=== PATIENT | female | born 1960 | race American Indian/Alaskan Native ===

== ENCOUNTER 2017-04-15 13:54 | Emergency (ER) | payer MEDICARE ==
[2017-04-15] MEDS ORDERED: TYLENOL PO ONE (17:38)
[2017-04-15] MEDS ORDERED: XYLOCAINE 1%/ EPI 1:100,000 INFILTRATI ONE (17:39)
[2017-04-15] MEDS ORDERED: XYLOCAINE 1%/ EPI 1:100,000 INFILTRATI NR (18:00)
[2017-04-15 18:08] VITALS: BP 156/91
== END 2017-04-15 18:52 | disposition home or self-care (01) ==
LOC: ED 13:54
DX: L02.411 Cutaneous abscess of right axilla (principal); Z79.82 Long term (current) use of aspirin; I10 Essential (primary) hypertension; F31.9 Bipolar disorder, unspecified; F41.9 Anxiety disorder, unspecified; F17.200 Nicotine dependence, unspecified, uncomplicated; Z88.8 Allergy status to other drugs, medicaments and biological substances

== ENCOUNTER 2019-01-21 07:05 | Emergency (ER) | payer MEDICARE ==
[2019-01-21 07:14] VITALS: BP 162/94
[2019-01-21] MEDS ORDERED: DECADRON IM ONE (07:52)
--- NOTE | 2019-01-21 07:52 | Emergency Department Report ---
HPI - General Chief Complaint: Fall Time Seen by Provider: 01/21/19 07:43 - HPI HPI: Patient is a 58-year-old female and she comes to the ER today after falling 3 days ago. She states she tripped and fell from standing position and landed on her left side on the floor. She thinks this was due to her vertigo which she takes Antivert for. Patient is complaining of rib pain on the left side. She states the pain gaze been used at home but is not helping. The pain is worse with movement and deep inspiration. She states that it hurts to cough. Vital signs noted -her heart rate being approximately 110 on admission. BP slightly inc. But she states that she is in pain. Her sats are 98% on room air. No fever. Patient reports that she's had recent sinus drainage and sinus headache. Patient denies recent fever or chills. Patient is seen by [facility] and Dr. Donaldson. Past medical history includes hypertension, vertigo, arthritis, bipolar, hypothyroidism. Patient has had previous thyroid surgery and hysterectomy. Home medications are currently Antivert and Vistaril for sleep. Note the patient is allergic to aspirin and NSAIDs. ED Past Medical Hx - Past Medical History Hx Hypertension: Yes Hx Arthritis: Yes Hx Psychiatric Treatment: Yes (bipolar, PTSD, anxiety.) Additional medical history: hypothyroid - Surgical History Past Surgical History?: Yes Additional Surgical History: hysterectomy. right thyroidectomy - Family History Family history: no significant - Social History Smoking Status: Current Every Day Smoker Substance Use Type: None - Medications Home Medications: Home Medications Medication Instructions Recorded Confirmed Last Taken Type Diazepam [Valium] 10 mg PO BID 04/15/17 04/15/17 04/15/17 14:00 History 10mg Levothyroxine [Synthroid] 100 mcg PO DAILY 04/15/17 04/15/17 04/15/17 08:30 History 1 tab Lisinopril [Zestril TAB] 2.5 mg PO QDAY 04/15/17 04/15/17 04/15/17 08:30 History 2.5 mg [place] Carbonate ER [Lithobid ER] 300 mg PO QHS 04/15/17 04/15/17 Unknown History QUEtiapine [SEROquel] 300 mg PO QHS 04/15/17 04/15/17 Unknown History carBAMazepine [TEGretol] 300 mg PO Q12HR 04/15/17 04/15/17 04/15/17 08:30 History 300 mg hydrOXYzine PAMOATE [Vistaril] 50 mg PO QHS 04/15/17 04/15/17 Unknown History Triamcinolone Aceton 0.1% (Nf) 1 applic TP BID #1 tube 12/25/18 Unknown Rx [Kenalog (NF)] Azithromycin [Zithromax Z-DONNA] 250 mg PO DAILY #4 tablet 01/21/19 Unknown Rx Benzonatate [Tessalon Perles] 100 mg PO Q8HR PRN #20 capsule 01/21/19 Unknown Rx predniSONE [Deltasone] 20 mg PO DAILY #5 tablet 01/21/19 Unknown Rx traMADol [Ultram] 50 mg PO Q6HR PRN #10 tablet 01/21/19 Unknown Rx ED Review of Systems ROS: Stated complaint: RT SIDE CHEST PAIN Other details as noted in HPI Comment: All other systems reviewed and negative Physical Exam - Physical Exam Vital Signs: Vital Signs 01/21/19 07:12 Temperature 97.8 F Pulse Rate 110 H Respiratory 17 Rate Blood Pressure 162/94 O2 Sat by Pulse 98 Oximetry Physical Exam: WDWN patient in NAD VS per RN flow sheet Alert and oriented to person, place and time. S1-S2. No S3 or S4. No systolic or diastolic murmur. No JVD. No pitting edema. Lungs clear to auscultation bilaterally anteriorly and posteriorly. Abdomen soft nontender bowel soundsx4 Moves all extremities well. Mood and affect appropriate. ED Course Vital Signs 01/21/19 07:12 Temperature 97.8 F Pulse Rate 110 H Respiratory 17 Rate Blood Pressure 162/94 O2 Sat by Pulse 98 Oximetry ED Medical Decision Making - Radiology Data Radiology results: report reviewed, image reviewed - Medical Decision Making XRAY NOTED PT HAS BEEN INFORMED OF FINDINGS SHE IS REQUESTING PAIN MEDICATION SEE ALLERGIES THE DECADRON AND MOTRIN DID NOT HELP SHE IS REFUSING OTHER MEDICATIONS. DC HOME WITH RX AND DC PLAN OF CARE. AMBULATORY, TAKING PO, NONTOXIC AND AFEBRILE Vital Signs 01/21/19 07:12 Temperature 97.8 F Pulse Rate 110 H Respiratory 17 Rate Blood Pressure 162/94 O2 Sat by Pulse 98 Oximetry - Differential Diagnosis ro rib fracture Critical care attestation.: If time is entered above; I have spent that time in minutes in the direct care of this critically ill patient, excluding procedure time. ED Disposition Clinical Impression: Rib pain on left side, Pneumonia, Cigarette smoker, Fall from ground level Disposition: DC-01 TO HOME OR SELFCARE Is pt being admited?: No Does the pt Need Aspirin: No Condition: Stable Instructions: Bacterial Pneumonia (ED) Additional Instructions: DIET TOLERATED MEDS ORDERED TODAY IN ER FOLLOW INSTRUCTIONS ON THE BOTTLE FOLLOW UP PCP WITHIN 48 HOURS TO ENSURE YOU ARE GETTING BETTER ACTIVITY TOLERATED MOTRIN OR TYLENOL FOR PAIN OR FEVER RETURN TO THE ER FOR WORSENING SYMPTOMS NOT RELIEVED BY YOUR MEDICATIONS. CUT DOWN AND ELIMINATE YOUR SMOKING CONTINUE home medications follow up with her primary care on Thursday to make sure this is resolving DEEP BREATHING AND COUGHING every 2 hours to help to bring up any secretions that you're producing and to clear this infection. Holding a pillow across her chest will help. Prescriptions: predniSONE [Deltasone] 20 mg PO DAILY #5 tablet Benzonatate [Tessalon Perles] 100 mg PO Q8HR PRN #20 capsule PRN Reason: Cough traMADol [Ultram] 50 mg PO Q6HR PRN #10 tablet PRN Reason: Pain Azithromycin [Zithromax Z-DONNA] 250 mg PO DAILY #4 tablet Referrals: [facility] [Outside] - 3-5 Days Time of Disposition: 08:59
--- NOTE | 2019-01-21 08:50 | XRay Report ---
LEFT RIB RADIOGRAPHS WITH CHEST VIEW INDICATION: Pain, status post fall. COMPARISON: 09/26/2010 CXR. FINDINGS: Frontal chest as also AP and oblique radiographs to evaluate left ribs, 4 projections demonstrate normal cardiomediastinal silhouette. New mild left lower lobe densities/pneumonia, possibly atelectasis or contusions in the given setting, amongst others. No significant pleural effusions or CHF. Specifically, no definite or significantly displaced left rib fracture identified. CONCLUSION: No definite acute left rib radiographic abnormality, though left lung base opacity/pneumonia noted, as described. Please also correlate clinically and note that some acute rib fractures may be radiographically occult. Thank you for the opportunity to participate in this patient's care.
[2019-01-21] MEDS ORDERED: PROVENTIL IH ONE (08:58)
[2019-01-21] MEDS ORDERED: ZITHROMAX PO ONE (08:58)
== END 2019-01-21 09:20 | disposition home or self-care (01) ==
LOC: ED 07:05
DX: J18.9 Pneumonia, unspecified organism (principal); R07.81 Pleurodynia; F17.210 Nicotine dependence, cigarettes, uncomplicated; I10 Essential (primary) hypertension; M19.90 Unspecified osteoarthritis, unspecified site; F31.9 Bipolar disorder, unspecified; F17.200 Nicotine dependence, unspecified, uncomplicated; W18.30XA Fall on same level, unspecified, initial encounter; Y93.89 Activity, other specified; Y92.89 Other specified places as the place of occurrence of the external cause; Y99.8 Other external cause status
CPT/HCPCS: 71101; 96372; 99283; J1100

== ENCOUNTER 2020-04-09 09:56 | Emergency (ER) | payer MEDICARE ==
[2020-04-09 10:19] VITALS: BP 144/86
--- NOTE | 2020-04-09 12:07 | Event Note ---
ED Screening Note Date of service: 04/09/20 Time: 12:06 ED Screening Note: 59-year-old female presents to ED with bilateral arm pain and swelling x1 week. Patient states she is unable to close her arm due to pain and swelling. Multiple abscesses noted to bilateral arm pits . This initial assessment/diagnostic orders/clinical plan/treatment(s) is/are subject to change based on patients health status, clinical progression and re- assessment by fellow clinical providers in the ED. Further treatment and workup at subsequent clinical providers discretion. Patient/guardian urged not to elope from the ED as their condition may be serious if not clinically assessed and managed. Initial orders include: I&D, ACC
[2020-04-09] MEDS ORDERED: LIDOCAINE (2%) 20 MG/1 ML VIAL 20 ML MDV INFILTRATI ONE (13:27)
--- NOTE | 2020-04-09 13:44 | Emergency Department Report ---
Abscess Boil HPI - HPI Chief Complaint: Skin/Abscess/Foreign Body Stated Complaint: CYST UNDER BOTH ARMS Time Seen by Provider: 04/09/20 13:19 Duration: 2 Days Location: Lower Extremity Severity: Mild History: Yes Pain, No Fever, No Purulent Drainage, No Numbness, No Foreign Body, No Previous History, No Insect Bite HPI: This is a 59-year-old female nontoxic, well nourished in appearance, no acute signs of distress presents to the ED with c/o of redness and pain and swelling to bilateral axilla area. Patient agrees to some pus or drainage to the right axilla. Patient denies any fever, chills, nausea, vomiting, chest pain, shortness of breath, headache or stiff neck. HX of chronic abscess. Home Medications: Home Medications Medication Instructions Recorded Confirmed Last Taken Diazepam [Valium] 10 mg PO BID 04/15/17 04/15/17 04/15/17 14:00 10 mg Levothyroxine [Synthroid] 100 mcg PO DAILY 04/15/17 04/15/17 04/15/17 08:30 1 tab Lisinopril [Zestril TAB] 2.5 mg PO QDAY 04/15/17 04/15/17 04/15/17 08:30 2.5 mg [place] Carbonate ER [Lithobid ER] 300 mg PO QHS 04/15/17 04/15/17 Unknown QUEtiapine [SEROquel] 300 mg PO QHS 04/15/17 04/15/17 Unknown carBAMazepine [TEGretol] 300 mg PO Q12HR 04/15/17 04/15/17 04/15/17 08:30 300 mg hydrOXYzine PAMOATE [Vistaril] 50 mg PO QHS 04/15/17 04/15/17 Unknown Previous Rx's Medication Instructions Recorded Last Taken Type Triamcinolone Aceton 0.1% (Nf) 1 applic TP BID #1 tube 12/25/18 Unknown Rx [Kenalog (NF)] Azithromycin [Zithromax Z-DONNA] 250 mg PO DAILY #4 tablet 01/21/19 Unknown Rx Benzonatate [Tessalon Perles] 100 mg PO Q8HR PRN #20 capsule 01/21/19 Unknown Rx predniSONE [Deltasone] 20 mg PO DAILY #5 tablet 01/21/19 Unknown Rx traMADoL [Ultram] 50 mg PO Q6HR PRN #10 tablet 01/21/19 Unknown Rx Acetaminophen/Codeine [Tylenol 1 tab PO Q6H PRN #12 tab 04/09/20 Unknown Rx /Codeine # 3 tab] Sulfamethoxazole/Trimethoprim 1 each PO BID #14 tablet 04/09/20 Unknown Rx [Bactrim DS TAB] Allergies/Adverse Reactions: Allergies Allergy/AdvReac Type Severity Reaction Status Date / Time aspirin Allergy Unknown Verified 04/09/20 10:14 NSAIDS (Non-Steroidal Allergy Unknown Verified 04/09/20 10:14 Anti-Inflamma tetracycline Allergy Unknown Verified 04/09/20 10:14 ED Review of Systems ROS: Stated complaint: CYST UNDER BOTH ARMS Other details as noted in HPI Constitutional: denies: chills, fever Eyes: denies: eye pain, eye discharge, vision change ENT: denies: ear pain, throat pain Respiratory: denies: cough, shortness of breath, wheezing Cardiovascular: denies: chest pain, palpitations Endocrine: no symptoms reported Gastrointestinal: denies: abdominal pain, nausea, diarrhea Genitourinary: denies: urgency, dysuria, discharge Musculoskeletal: denies: back pain, joint swelling, arthralgia Skin: denies: rash, lesions Neurological: denies: headache, weakness, paresthesias Psychiatric: denies: anxiety, depression Hematological/Lymphatic: denies: easy bleeding, easy bruising ED Past Medical Hx - Past Medical History Hx Hypertension: Yes Hx Arthritis: Yes Hx Psychiatric Treatment: Yes (bipolar, PTSD, anxiety.) Additional medical history: hypothyroid - Surgical History Additional Surgical History: hysterectomy. right thyroidectomy - Social History Smoking Status: Never Smoker Substance Use Type: None - Medications Home Medications: Home Medications Medication Instructions Recorded Confirmed Last Taken Type Diazepam [Valium] 10 mg PO BID 04/15/17 04/15/17 04/15/17 14:00 History 10 mg Levothyroxine [Synthroid] 100 mcg PO DAILY 04/15/17 04/15/17 04/15/17 08:30 History 1 tab Lisinopril [Zestril TAB] 2.5 mg PO QDAY 04/15/17 04/15/17 04/15/17 08:30 History 2.5 mg [place] Carbonate ER [Lithobid ER] 300 mg PO QHS 04/15/17 04/15/17 Unknown History QUEtiapine [SEROquel] 300 mg PO QHS 04/15/17 04/15/17 Unknown History carBAMazepine [TEGretol] 300 mg PO Q12HR 04/15/17 04/15/17 04/15/17 08:30 History 300 mg hydrOXYzine PAMOATE [Vistaril] 50 mg PO QHS 04/15/17 04/15/17 Unknown History Triamcinolone Aceton 0.1% (Nf) 1 applic TP BID #1 tube 12/25/18 Unknown Rx [Kenalog (NF)] Azithromycin [Zithromax Z-DONNA] 250 mg PO DAILY #4 tablet 01/21/19 Unknown Rx Benzonatate [Tessalon Perles] 100 mg PO Q8HR PRN #20 capsule 01/21/19 Unknown Rx predniSONE [Deltasone] 20 mg PO DAILY #5 tablet 01/21/19 Unknown Rx traMADoL [Ultram] 50 mg PO Q6HR PRN #10 tablet 01/21/19 Unknown Rx Acetaminophen/Codeine [Tylenol 1 tab PO Q6H PRN #12 tab 04/09/20 Unknown Rx /Codeine # 3 tab] Sulfamethoxazole/Trimethoprim 1 each PO BID #14 tablet 04/09/20 Unknown Rx [Bactrim DS TAB] ED Abscess Boil Physical Exam - Exam General: Vital signs noted. No distress. Alert and acting appropriately. Front/Back of Body, Lg (Color): 1 - 3 cm abscess 2 - open abscess with drainage Size: 3 cm Exam: Yes Tenderness, Yes Fluctuance, Yes Surrounding Cellulites/Erythema, Yes Normal Neurologic Exam, Yes Normal Circulation, No Lymphangitis, No Crepitation, No Heart Murmur I & D Note - I & D Note I & D Note: Procedure to left axilla: under sterile field, I used Betadine to cleanse the area. I then used 2% lidocaine plain with 25-gauge 5/8 needle to inject area for anesthetic purposes. Total volume injected 3 mL. I then used an 11 blade to make a 1 cm incision. About 2 mL's of purulent drainage has been noted. I then used a hemostat to break the abscess formation. I then used sterile 0.9% normal saline flush to flush the wound with total volume of 40 mL used. I then put a 1/4 iodoform packing to the incision. A sterile 4 x 4 with tape has been applied as dressing. Bleeding is under control. Patient tolerated the procedure well with no signs of distress noted. ED Course Vital Signs 04/09/20 10:15 Temperature 98.2 F Pulse Rate 102 H Respiratory 18 Rate Blood Pressure 144/86 O2 Sat by Pulse 95 Oximetry - Reevaluation(s) Reevaluation #1: 04/09/20 13:37 Patient is speaking in full sentences with no signs of distress noted. Critical care attestation.: If time is entered above; I have spent that time in minutes in the direct care of this critically ill patient, excluding procedure time. ED Medical Decision Making - Medical Decision Making This is a 59-year-old female that presents with bilateral axillary abscess. Patient is stable and was examined by me. This is incision and drainage and has been performed and patient tolerated well. A sterile dressing has been applied. Patient was educated on proper wound care. Patient is discharged with Bactrim and Tylenol with codeine and was instructed not to operate any machinery while taking Tylenol with codeine due to drowsiness. Patient was instructed to return in 2 days for packing removal. Patient was instructed to refer to Follow-up with a primary care doctor in 3-5 days or if symptoms worsen and continue return to emergency room as soon as possible. At time of discharge, the patient does not seem toxic or ill in appearance. No acute signs of distress noted. Patient agrees to discharge treatment plan of care. No further questions noted by the patient. ED Disposition Clinical Impression: Encounter for incision and drainage procedure, Abscess of axillary region Disposition: -01 TO HOME OR SELFCARE Is pt being admited?: No Does the pt Need Aspirin: No Condition: Stable Instructions: Abscess Incision and Drainage (ED), Abscess (ED), Acetaminophen/Codeine (By mouth) Additional Instructions: Follow-up with a primary care doctor in 3-5 days or if symptoms worsen and continue return to emergency room as soon as possible. Return in 2 days for packing removal. Do not operate any machinery while taking Tylenol with codeine as this may cause drowsiness. Prescriptions: Sulfamethoxazole/Trimethoprim [Bactrim DS TAB] 1 each PO BID #14 tablet Acetaminophen/Codeine [Tylenol /Codeine # 3 tab] 1 tab PO Q6H PRN #12 tab PRN Reason: Pain , Severe (7-10) [facility]Primary Care Provider[facility] - 3-5 Days PRIMARY CAREMD [Referring] - 3-5 Days ANN MARIE ARITA MD [Staff Physician] - 3-5 Days Forms: Work/School Release Form(ED)
== END 2020-04-09 14:21 | disposition home or self-care (01) ==
LOC: ED 09:56
DX: L02.412 Cutaneous abscess of left axilla (principal); I10 Essential (primary) hypertension; M19.91 Primary osteoarthritis, unspecified site; F31.9 Bipolar disorder, unspecified; Z90.710 Acquired absence of both cervix and uterus; Z90.89 Acquired absence of other organs; Z79.2 Long term (current) use of antibiotics; Z79.899 Other long term (current) drug therapy; Z88.6 Allergy status to analgesic agent

== ENCOUNTER 2020-09-21 12:47 | Emergency (ER) | payer MEDICARE ==
[2020-09-21 13:02] VITALS: BP 126/84
[2020-09-21] MEDS ORDERED: ACETAMINOPHEN W/CODEINE 300-30 MG TAB PO ONE (13:50)
[2020-09-21] MEDS ORDERED: LIDOCAINE-MPF (1%) 10 MG/1 ML VIAL 5 ML INFILTRATI ONE (13:51)
--- NOTE | 2020-09-21 13:52 | Emergency Department Report ---
Abscess Boil HPI - HPI Chief Complaint: Skin/Abscess/Foreign Body Stated Complaint: CYST UNDER RT ARM Time Seen by Provider: 09/21/20 13:44 Duration: 1 Day History: Yes Pain, Yes Previous History, No Fever, No Purulent Drainage, No Numbness, No Foreign Body, No Insect Bite HPI: 60-year-old -[place] female presents to the emergency room for 1 day history of abscess under her right arm that came out last night. Patient states she has a history of them. Patient states she is used all conservative measures that she no labs. She reports that she often had to have them incised and drained. Patient denies any fever chills just reports pain. Patient has an allergy to NSAIDs tetracycline and aspirin. Home Medications: Home Medications Medication Instructions Recorded Confirmed Last Taken Diazepam [Valium] 10 mg PO BID 04/15/17 04/15/17 04/15/17 14:00 10 mg Levothyroxine [Synthroid] 100 mcg PO DAILY 04/15/17 04/15/17 04/15/17 08:30 1 tab Lisinopril [Zestril TAB] 2.5 mg PO QDAY 04/15/17 04/15/17 04/15/17 08:30 2.5 mg [place] Carbonate ER [Lithobid ER] 300 mg PO QHS 04/15/17 04/15/17 Unknown QUEtiapine [SEROquel] 300 mg PO QHS 04/15/17 04/15/17 Unknown carBAMazepine [TEGretol] 300 mg PO Q12HR 04/15/17 04/15/17 04/15/17 08:30 300 mg hydrOXYzine PAMOATE [Vistaril] 50 mg PO QHS 04/15/17 04/15/17 Unknown Previous Rx's Medication Instructions Recorded Last Taken Type Triamcinolone Aceton 0.1% (Nf) 1 applic TP BID #1 tube 12/25/18 Unknown Rx [Kenalog (NF)] Azithromycin [Zithromax Z-DONNA] 250 mg PO DAILY #4 tablet 01/21/19 Unknown Rx Benzonatate [Tessalon Perles] 100 mg PO Q8HR PRN #20 capsule 01/21/19 Unknown Rx predniSONE [Deltasone] 20 mg PO DAILY #5 tablet 01/21/19 Unknown Rx Acetaminophen/Codeine [Tylenol 1 tab PO Q6H PRN #12 tab 04/09/20 Unknown Rx /Codeine # 3 tab] Sulfamethoxazole/Trimethoprim 1 each PO BID #14 tablet 04/09/20 Unknown Rx [Bactrim DS TAB] Ciprofloxacin HCl 500 mg PO BID #14 tablet 09/21/20 Unknown Rx traMADoL [Ultram 50 MG tab] 50 mg PO Q6HR PRN #12 tablet 09/21/20 Unknown Rx Allergies/Adverse Reactions: Allergies Allergy/AdvReac Type Severity Reaction Status Date / Time aspirin Allergy Unknown Verified 04/09/20 10:14 NSAIDS (Non-Steroidal Allergy Unknown Verified 04/09/20 10:14 Anti-Inflamma tetracycline Allergy Unknown Verified 04/09/20 10:14 ED Review of Systems ROS: Stated complaint: CYST UNDER RT ARM Other details as noted in HPI Comment: All other systems reviewed and negative ED Past Medical Hx - Past Medical History Hx Hypertension: Yes Hx Arthritis: Yes Hx Psychiatric Treatment: Yes (bipolar, PTSD, anxiety.) Additional medical history: hypothyroid - Surgical History Additional Surgical History: hysterectomy. right thyroidectomy - Social History Smoking Status: Never Smoker Substance Use Type: None - Medications Home Medications: Home Medications Medication Instructions Recorded Confirmed Last Taken Type Diazepam [Valium] 10 mg PO BID 04/15/17 04/15/17 04/15/17 14:00 History 10 mg Levothyroxine [Synthroid] 100 mcg PO DAILY 04/15/17 04/15/17 04/15/17 08:30 Hist ory 1 tab Lisinopril [Zestril TAB] 2.5 mg PO QDAY 04/15/17 04/15/17 04/15/17 08:30 History 2.5 mg [place] Carbonate ER [Lithobid ER] 300 mg PO QHS 04/15/17 04/15/17 Unknown History QUEtiapine [SEROquel] 300 mg PO QHS 04/15/17 04/15/17 Unknown History carBAMazepine [TEGretol] 300 mg PO Q12HR 04/15/17 04/15/17 04/15/17 08:30 History 300 mg hydrOXYzine PAMOATE [Vistaril] 50 mg PO QHS 04/15/17 04/15/17 Unknown History Triamcinolone Aceton 0.1% (Nf) 1 applic TP BID #1 tube 12/25/18 Unknown Rx [Kenalog (NF)] Azithromycin [Zithromax Z-DONNA] 250 mg PO DAILY #4 tablet 01/21/19 Unknown Rx Benzonatate [Tessalon Perles] 100 mg PO Q8HR PRN #20 capsule 01/21/19 Unknown Rx predniSONE [Deltasone] 20 mg PO DAILY #5 tablet 01/21/19 Unknown Rx Acetaminophen/Codeine [Tylenol 1 tab PO Q6H PRN #12 tab 04/09/20 Unknown Rx /Codeine # 3 tab] Sulfamethoxazole/Trimethoprim 1 each PO BID #14 tablet 04/09/20 Unknown Rx [Bactrim DS TAB] Ciprofloxacin HCl 500 mg PO BID #14 tablet 09/21/20 Unknown Rx traMADoL [Ultram 50 MG tab] 50 mg PO Q6HR PRN #12 tablet 09/21/20 Unknown Rx ED Abscess Boil Physical Exam - Exam General: Vital signs noted. No distress. Alert and acting appropriately. Size: 3 cm Exam: Yes Tenderness, Yes Fluctuance, Yes Surrounding Cellulites/Erythema, Yes Heart Murmur, Yes Normal Neurologic Exam, Yes Normal Circulation, No Lymphangitis, No Crepitation I & D Note - I & D Note I & D Note: DATE OF PROCEDURE: 09/21/2020. PREOPERATIVE DIAGNOSES: 1.soft tissue infection. . POSTOPERATIVE DIAGNOSES: 1. 2. .........soft tissue infection. Infection appeared to be contained to subcutaneous tissue and there was no evidence of necrotizing soft tissue infection including myonecrosis. OPERATION PERFORMED: Incision and drainage of ..... soft tissue abscess. Provider: López Weldon PA-C. ANESTHESIA: Local. DESCRIPTION OF PROCEDURE: The patient was prepped and draped. Seropurulent, somewhat bloody fluid was noted. The infection appeared contained to a golf ball-sized area in the subcutaneous tissues above the fascia. There was no evidence of myonecrosis, penetration of the fascia or significant extent along the fascia of the i nfection. We cleaned the area with Betadine and then packed the wound .......... Dry dressings were applied. The patient appeared to tolerate the procedure well. ED Course Vital Signs 09/21/20 13:01 Temperature 97.7 F Pulse Rate 108 H Respiratory 15 Rate Blood Pressure 126/84 O2 Sat by Pulse 100 Oximetry Critical care attestation.: If time is entered above; I have spent that time in minutes in the direct care of this critically ill patient, excluding procedure time. ED Medical Decision Making - Medical Decision Making 60-year-old -[place] female presents to the emergency room for 1 day history of abscess under her right arm that came out last night. Patient states she has a history of them. Patient states she is used all conservative measures that she no labs. She reports that she often had to have them incised and drained. Patient denies any fever chills just reports pain. Patient has an allergy to NSAIDs tetracycline and aspirin. ED Disposition Clinical Impression: Abscess Disposition: DC-01 TO HOME OR SELFCARE Is pt being admited?: No Does the pt Need Aspirin: No Condition: Stable Instructions: Skin Abscess, [id number] Additional Instructions: Complete antibiotics take pain medication as needed. Warm compresses. Prescriptions: Ciprofloxacin HCl 500 mg PO BID #14 tablet traMADoL [Ultram 50 MG tab] 50 mg PO Q6HR PRN #12 tablet PRN Reason: Pain Referrals: ANN MARIE ARITA MD [Staff Physician] - 3-5 Days
== END 2020-09-21 15:34 | disposition home or self-care (01) ==
LOC: ED 12:47
DX: L02.413 Cutaneous abscess of right upper limb (principal); I10 Essential (primary) hypertension; M19.90 Unspecified osteoarthritis, unspecified site; F31.9 Bipolar disorder, unspecified; F41.9 Anxiety disorder, unspecified; E03.9 Hypothyroidism, unspecified; Z90.710 Acquired absence of both cervix and uterus; Z98.890 Other specified postprocedural states; Z79.82 Long term (current) use of aspirin; Z79.899 Other long term (current) drug therapy; Z88.6 Allergy status to analgesic agent; Z88.8 Allergy status to other drugs, medicaments and biological substances
CPT/HCPCS: 99282

== ENCOUNTER 2021-03-18 10:29 | Emergency (ER) | payer MEDICARE ==
[2021-03-18] MEDS ORDERED: HYDROcodone/ACETAMINOPHEN 10-325MG TAB PO ONE (15:41)
--- NOTE | 2021-03-18 16:53 | Emergency Department Report ---
Abscess Boil HPI - HPI Chief Complaint: Skin/Abscess/Foreign Body Stated Complaint: HYDRINITIS Time Seen by Provider: 03/18/21 15:16 Duration: 2 Days Location: Upper Extremity Severity: None History: Yes Pain, No Fever, No Purulent Drainage, No Numbness, No Foreign Body, No Previous History, No Insect Bite HPI: This is a 60-year-old female nontoxic, well nourished in appearance, no acute signs of distress presents to the ED with c/o of redness and pain with swelling to right axilla area. Patient denies any pus or drainage. Patient denies any fever, chills, nausea, vomiting, chest pain, shortness of breath, headache or stiff neck. Patient stated allergies to aspirin and NSAIDs, and tetracycline. Home Medications: Home Medications Medication Instructions Recorded Confirmed Last Taken Diazepam [Valium] 10 mg PO BID 04/15/17 04/15/17 04/15/17 14:00 10 mg Levothyroxine [Synthroid] 100 mcg PO DAILY 04/15/17 04/15/17 04/15/17 08:30 1 tab Lisinopril [Zestril TAB] 2.5 mg PO QDAY 04/15/17 04/15/17 04/15/17 08:30 2.5 mg [place] Carbonate ER [Lithobid ER] 300 mg PO QHS 04/15/17 04/15/17 Unknown QUEtiapine [SEROquel] 300 mg PO QHS 04/15/17 04/15/17 Unknown carBAMazepine [TEGretol] 300 mg PO Q12HR 04/15/17 04/15/17 04/15/17 08:30 300 mg hydrOXYzine PAMOATE [Vistaril] 50 mg PO QHS 04/15/17 04/15/17 Unknown Previous Rx's Medication Instructions Recorded Last Taken Type Triamcinolone Aceton 0.1% (Nf) 1 applic TP BID #1 tube 12/25/18 Unknown Rx [Kenalog (NF)] Azithromycin [Zithromax Z-DONNA] 250 mg PO DAILY #4 tablet 01/21/19 Unknown Rx Benzonatate [Tessalon Perles] 100 mg PO Q8HR PRN #20 capsule 01/21/19 Unknown Rx predniSONE [Deltasone] 20 mg PO DAILY #5 tablet 01/21/19 Unknown Rx Acetaminophen/Codeine [Tylenol 1 tab PO Q6H PRN #12 tab 04/09/20 Unknown Rx /Codeine # 3 tab] Sulfamethoxazole/Trimethoprim 1 each PO BID #14 tablet 04/09/20 Unknown Rx [Bactrim DS TAB] Ciprofloxacin HCl 500 mg PO BID #14 tablet 09/21/20 Unknown Rx traMADoL [Ultram 50 MG tab] 50 mg PO Q6HR PRN #12 tablet 09/21/20 Unknown Rx Acetaminophen/Codeine [Tylenol 1 tab PO Q6H PRN #12 tab 03/18/21 Unknown Rx /Codeine # 3 tab] Clindamycin [Clindamycin CAP] 300 mg PO Q8H #21 cap 03/18/21 Unknown Rx Allergies/Adverse Reactions: Allergies Allergy/AdvReac Type Severity Reaction Status Date / Time aspirin Allergy Unknown Verified 04/09/20 10:14 NSAIDS (Non-Steroidal Allergy Unknown Verified 04/09/20 10:14 Anti-Inflamma tetracycline Allergy Unknown Verified 04/09/20 10:14 ED Review of Systems ROS: Stated complaint: HYDRINITIS Other details as noted in HPI Comment: All other systems reviewed and negative Constitutional: denies: chills, fever Eyes: denies: eye pain, eye discharge, vision change ENT: denies: ear pain, throat pain Respiratory: denies: cough, shortness of breath, wheezing Cardiovascular: denies: chest pain, palpitations Endocrine: no symptoms reported Gastrointestinal: denies: abdominal pain, nausea, diarrhea Genitourinary: denies: urgency, dysuria, discharge Musculoskeletal: denies: back pain, joint swelling, arthralgia Skin: denies: rash, lesions Neurological: denies: headache, weakness, paresthesias Psychiatric: denies: anxiety, depression Hematological/Lymphatic: denies: easy bleeding, easy bruising ED Past Medical Hx - Past Medical History Previous Medical History?: Yes Hx Hypertension: Yes Hx Arthritis: Yes Hx Psychiatric Treatment: Yes (bipolar, PTSD, anxiety.) Additional medical history: hypothyroid - Surgical History Past Surgical History?: Yes Additional Surgical History: hysterectomy. right thyroidectomy - Social History Smoking Status: Never Smoker Substance Use Type: None - Medications Home Medications: Home Medications Medication Instructions Recorded Confirmed Last Taken Type Diazepam [Valium] 10 mg PO BID 04/15/17 04/15/17 04/15/17 14:00 History 10 mg Levothyroxine [Synthroid] 100 mcg PO DAILY 04/15/17 04/15/17 04/15/17 08:30 History 1 tab Lisinopril [Zestril TAB] 2.5 mg PO QDAY 04/15/17 04/15/17 04/15/17 08:30 History 2.5 mg [place] Carbonate ER [Lithobid ER] 300 mg PO QHS 04/15/17 04/15/17 Unknown History QUEtiapine [SEROquel] 300 mg PO QHS 04/15/17 04/15/17 Unknown History carBAMazepine [TEGretol] 300 mg PO Q12HR 04/15/17 04/15/17 04/15/17 08:30 History 300 mg hydrOXYzine PAMOATE [Vistaril] 50 mg PO QHS 04/15/17 04/15/17 Unknown History Triamcinolone Aceton 0.1% (Nf) 1 applic TP BID #1 tube 12/25/18 Unknown Rx [Kenalog (NF)] Azithromycin [Zithromax Z-DONNA] 250 mg PO DAILY #4 tablet 01/21/19 Unknown Rx Benzonatate [Tessalon Perles] 100 mg PO Q8HR PRN #20 capsule 01/21/19 Unknown Rx predniSONE [Deltasone] 20 mg PO DAILY #5 tablet 01/21/19 Unknown Rx Acetaminophen/Codeine [Tylenol 1 tab PO Q6H PRN #12 tab 04/09/20 Unknown Rx /Codeine # 3 tab] Sulfamethoxazole/Trimethoprim 1 each PO BID #14 tablet 04/09/20 Unknown Rx [Bactrim DS TAB] Ciprofloxacin HCl 500 mg PO BID #14 tablet 09/21/20 Unknown Rx traMADoL [Ultram 50 MG tab] 50 mg PO Q6HR PRN #12 tablet 09/21/20 Unknown Rx Acetaminophen/Codeine [Tylenol 1 tab PO Q6H PRN #12 tab 03/18/21 Unknown Rx /Codeine # 3 tab] Clindamycin [Clindamycin CAP] 300 mg PO Q8H #21 cap 03/18/21 Unknown Rx ED Abscess Boil Physical Exam - Exam General: Vital signs noted. No distress. Alert and acting appropriately. Size: 4 cm Exam: Yes Tenderness, Yes Fluctuance, Yes Normal Neurologic Exam, Yes Normal Circulation, No Surrounding Cellulites/Erythema, No Lymphangitis, No Crepitation, No Heart Murmur Exam: right axilla I & D Note - I & D Note I & D Note: Under sterile field, I used Betadine to cleanse the area. I then used 2% lidocaine plain with 25-gauge 5/8 needle to inject area for anesthetic purposes. Total volume injected 3 mL. I then used an 11 blade to make a 1 cm incision. About 4 mL's of purulent drainage has been noted. I then used a hemostat to break the abscess formation. I then used sterile 0.9% normal saline flush to flush the wound with total volume of 40 mL used. I then put a 1/4 iod oform packing to the incision. A sterile 4 x 4 with tape has been applied as dressing. Bleeding is under control. Patient tolerated the procedure well with no signs of distress noted. ED Course Vital Signs 03/18/21 03/18/21 11:15 16:11 Temperature 97.2 F L Pulse Rate 112 H Respiratory 18 16 Rate Blood Pressure 111/73 [Right] O2 Sat by Pulse 97 Oximetry Vital Signs 03/18/21 03/18/21 03/18/21 11:15 16:11 16:53 Temperature 97.2 F L Pulse Rate 112 H 107 H Respiratory 18 16 18 Rate Blood Pressure 111/73 119/82 [Right] O2 Sat by Pulse 97 97 Oximetry - Reevaluation(s) Reevaluation #1: 03/18/21 16:49 Patient is speaking in full sentences with no signs of distress noted. Critical care attestation.: If time is entered above; I have spent that time in minutes in the direct care of this critically ill patient, excluding procedure time. ED Medical Decision Making - Medical Decision Making This is a 60-year-old female that presents with right axillary abscess. Patient is stable and was examined by me. This is incision and drainage and has been performed and patient tolerated well. A sterile dressing has been applied. Patient was educated on proper wound care. Patient is discharged with Clinda and Tylenol with codeine and was instructed not to operate any machinery while taking Tylenol with codeine due to drowsiness. Patient was instructed to return in 2 days for packing removal. Patient was instructed to refer to Follow-up with a primary care doctor in 3-5 days or if symptoms worsen and continue return to emergency room as soon as possible. At time of discharge, the patient does not seem toxic or ill in appearance. No acute signs of distress noted. Patient agrees to discharge treatment plan of care. No further questions noted by the patient. ED Disposition Clinical Impression: Abscess of right axilla, Encounter for incision and drainage procedure Disposition: TO HOME OR SELFCARE Is pt being admited?: No Does the pt Need Aspirin: No Condition: Stable Instructions: Skin Abscess, [id number], Incision and Drainage Additional Instructions: Follow-up with a primary care doctor in 3-5 days or if symptoms worsen and continue return to emergency room as soon as possible. Do not operate any machinery while taking Tylenol with codeine as this may cause drowsiness. Prescriptions: Clindamycin [Clindamycin CAP] 300 mg PO Q8H #21 cap Acetaminophen/Codeine [Tylenol /Codeine # 3 tab] 1 tab PO Q6H PRN #12 tab PRN Reason: Pain , Severe (7-10) Referrals: PRIMARY MD KYLAH [Primary Care Provider] - 3-5 Days ANN MARIE ARITA MD [Staff Physician] - 3-5 Days Forms: Work/School Release Form(ED) Time of Disposition: 16:53
[2021-03-18 16:56] VITALS: BP 119/82
== END 2021-03-18 17:01 | disposition home or self-care (01) ==
LOC: ED 10:29
DX: L02.411 Cutaneous abscess of right axilla (principal); I10 Essential (primary) hypertension; M19.90 Unspecified osteoarthritis, unspecified site; E03.9 Hypothyroidism, unspecified; F41.8 Other specified anxiety disorders; F32.9 Major depressive disorder, single episode, unspecified; F43.10 Post-traumatic stress disorder, unspecified; Z98.890 Other specified postprocedural states; Z88.1 Allergy status to other antibiotic agents; Z88.6 Allergy status to analgesic agent; X58.XXXA Exposure to other specified factors, initial encounter; Y93.89 Activity, other specified; Y92.89 Other specified places as the place of occurrence of the external cause; Y99.8 Other external cause status
CPT/HCPCS: 99282

== ENCOUNTER 2021-09-09 00:26 | Emergency (ER) | payer MEDICARE ==
[2021-09-09] MEDS ORDERED: LIDOCAINE (2%) 20 MG/1 ML VIAL 20 ML MDV INFILTRATI STA (01:39)
[2021-09-09] MEDS ORDERED: HYDROcodone/ACETAMINOPHEN 5-325 MG TAB PO STA (01:39)
[2021-09-09] MEDS ORDERED: CLINDAMYCIN 150 MG/ML 2 ML VIAL IM ONE (03:37)
--- NOTE | 2021-09-09 03:51 | Emergency Department Report ---
- General Chief complaint: Skin/Abscess/Foreign Body Stated complaint: CYSTS UNDER ARM Time Seen by Provider: 09/09/21 01:38 Source: patient Mode of arrival: Ambulatory Limitations: No Limitations - History of Present Illness MD complaint: abscess/boil -: Gradual Tetanus Up to Date: yes Location: RUE Severity: mild, moderate Quality: dull Consistency: constant Improves with: none Worsens with: none, movement Context: none Associated symptoms: denies other symptoms Treatments Prior to Arrival: none - Related Data Home Medications Medication Instructions Recorded Confirmed Last Taken Diazepam [Valium] 10 mg PO BID 04/15/17 04/15/17 04/15/17 14:00 10 mg Levothyroxine [Synthroid] 100 mcg PO DAILY 04/15/17 04/15/17 04/15/17 08:30 1 tab Lisinopril [Zestril TAB] 2.5 mg PO QDAY 04/15/17 04/15/17 04/15/17 08:30 2.5 mg [place] Carbonate ER [Lithobid ER] 300 mg PO QHS 04/15/17 04/15/17 Unknown QUEtiapine [SEROquel] 300 mg PO QHS 04/15/17 04/15/17 Unknown carBAMazepine [TEGretol] 300 mg PO Q12HR 04/15/17 04/15/17 04/15/17 08:30 300 mg hydrOXYzine PAMOATE [Vistaril] 50 mg PO QHS 04/15/17 04/15/17 Unknown Previous Rx's Medication Instructions Recorded Last Taken Type Triamcinolone Aceton 0.1% (Nf) 1 applic TP BID #1 tube 12/25/18 Unknown Rx [Kenalog (NF)] Azithromycin [Zithromax Z-DONNA] 250 mg PO DAILY #4 tablet 01/21/19 Unknown Rx Benzonatate [Tessalon Perles] 100 mg PO Q8HR PRN #20 capsule 01/21/19 Unknown Rx predniSONE [Deltasone] 20 mg PO DAILY #5 tablet 01/21/19 Unknown Rx Acetaminophen/Codeine [Tylenol 1 tab PO Q6H PRN #12 tab 04/09/20 Unknown Rx /Codeine # 3 tab] Sulfamethoxazole/Trimethoprim 1 each PO BID #14 tablet 04/09/20 Unknown Rx [Bactrim DS TAB] Ciprofloxacin HCl 500 mg PO BID #14 tablet 09/21/20 Unknown Rx traMADoL [Ultram 50 MG tab] 50 mg PO Q6HR PRN #12 tablet 09/21/20 Unknown Rx Acetaminophen/Codeine [Tylenol 1 tab PO Q6H PRN #12 tab 03/18/21 Unknown Rx /Codeine # 3 tab] Clindamycin [Clindamycin CAP] 300 mg PO Q8H #21 cap 03/18/21 Unknown Rx Clindamycin [Clindamycin CAP] 300 mg PO Q6H #28 capsule 09/09/21 Unknown Rx Allergies Allergy/AdvReac Type Severity Reaction Status Date / Time aspirin Allergy Unknown Verified 04/09/20 10:14 NSAIDS (Non-Steroidal Allergy Unknown Verified 04/09/20 10:14 Anti-Inflamma tetracycline Allergy Unknown Verified 04/09/20 10:14 Abscess Boil HPI - HPI Chief Complaint: Skin/Abscess/Foreign Body Stated Complaint: CYSTS UNDER ARM Time Seen by Provider: 09/09/21 01:38 Home Medications: Home Medications Medication Instructions Recorded Confirmed Last Taken Diazepam [Valium] 10 mg PO BID 04/15/17 04/15/17 04/15/17 14:00 10 mg Levothyroxine [Synthroid] 100 mcg PO DAILY 04/15/17 04/15/17 04/15/17 08:30 1 tab Lisinopril [Zestril TAB] 2.5 mg PO QDAY 04/15/17 04/15/17 04/15/17 08:30 2.5 mg [place] Carbonate ER [Lithobid ER] 300 mg PO QHS 04/15/17 04/15/17 Unknown QUEtiapine [SEROquel] 300 mg PO QHS 04/15/17 04/15/17 Unknown carBAMazepine [TEGretol] 300 mg PO Q12HR 04/15/17 04/15/17 04/15/17 08:30 300 mg hydrOXYzine PAMOATE [Vistaril] 50 mg PO QHS 04/15/17 04/15/17 Unknown Previous Rx's Medication Instructions Recorded Last Taken Type Triamcinolone Aceton 0.1% (Nf) 1 applic TP BID #1 tube 12/25/18 Unknown Rx [Kenalog (NF)] Azithromycin [Zithromax Z-DONNA] 250 mg PO DAILY #4 tablet 01/21/19 Unknown Rx Benzonatate [Tessalon Perles] 100 mg PO Q8HR PRN #20 capsule 01/21/19 Unknown Rx predniSONE [Deltasone] 20 mg PO DAILY #5 tablet 01/21/19 Unknown Rx Acetaminophen/Codeine [Tylenol 1 tab PO Q6H PRN #12 tab 04/09/20 Unknown Rx /Codeine # 3 tab] Sulfamethoxazole/Trimethoprim 1 each PO BID #14 tablet 04/09/20 Unknown Rx [Bactrim DS TAB] Ciprofloxacin HCl 500 mg PO BID #14 tablet 09/21/20 Unknown Rx traMADoL [Ultram 50 MG tab] 50 mg PO Q6HR PRN #12 tablet 09/21/20 Unknown Rx Acetaminophen/Codeine [Tylenol 1 tab PO Q6H PRN #12 tab 03/18/21 Unknown Rx /Codeine # 3 tab] Clindamycin [Clindamycin CAP] 300 mg PO Q8H #21 cap 03/18/21 Unknown Rx Clindamycin [Clindamycin CAP] 300 mg PO Q6H #28 capsule 09/09/21 Unknown Rx Allergies/Adverse Reactions: Allergies Allergy/AdvReac Type Severity Reaction Status Date / Time aspirin Allergy Unknown Verified 04/09/20 10:14 NSAIDS (Non-Steroidal Allergy Unknown Verified 04/09/20 10:14 Anti-Inflamma tetracycline Allergy Unknown Verified 04/09/20 10:14 ED Review of Systems ROS: Stated complaint: CYSTS UNDER ARM Other details as noted in HPI ED Past Medical Hx - Past Medical History Previous Medical History?: Yes Hx Hypertension: Yes Hx Arthritis: Yes Hx Psychiatric Treatment: Yes (bipolar, PTSD, anxiety.) Additional medical history: hypothyroid. Hydranitis - Surgical History Additional Surgical History: hysterectomy. right thyroidectomy - Social History Smoking Status: Current Every Day Smoker Substance Use Type: None - Medications Home Medications: Home Medications Medication Instructions Recorded Confirmed Last Taken Type Diazepam [Valium] 10 mg PO BID 04/15/17 04/15/17 04/15/17 14:00 History 10 mg Levothyroxine [Synthroid] 100 mcg PO DAILY 04/15/17 04/15/17 04/15/17 08:30 History 1 tab Lisinopril [Zestril TAB] 2.5 mg PO QDAY 04/15/17 04/15/17 04/15/17 08:30 History 2.5 mg [place] Carbonate ER [Lithobid ER] 300 mg PO QHS 04/15/17 04/15/17 Unknown History QUEtiapine [SEROquel] 300 mg PO QHS 04/15/17 04/15/17 Unknown History carBAMazepine [TEGretol] 300 mg PO Q12HR 04/15/17 04/15/17 04/15/17 08:30 History 300 mg hydrOXYzine PAMOATE [Vistaril] 50 mg PO QHS 04/15/17 04/15/17 Unknown History Triamcinolone Aceton 0.1% (Nf) 1 applic TP BID #1 tube 12/25/18 Unknown Rx [Kenalog (NF)] Azithromycin [Zithromax Z-DONNA] 250 mg PO DAILY #4 tablet 01/21/19 Unknown Rx Benzonatate [Tessalon Perles] 100 mg PO Q8HR PRN #20 capsule 01/21/19 Unknown Rx predniSONE [Deltasone] 20 mg PO DAILY #5 tablet 01/21/19 Unknown Rx Acetaminophen/Codeine [Tylenol 1 tab PO Q6H PRN #12 tab 04/09/20 Unknown Rx /Codeine # 3 tab] Sulfamethoxazole/Trimethoprim 1 each PO BID #14 tablet 04/09/20 Unknown Rx [Bactrim DS TAB] Ciprofloxacin HCl 500 mg PO BID #14 tablet 09/21/20 Unknown Rx traMADoL [Ultram 50 MG tab] 50 mg PO Q6HR PRN #12 tablet 09/21/20 Unknown Rx Acetaminophen/Codeine [Tylenol 1 tab PO Q6H PRN #12 tab 03/18/21 Unknown Rx /Codeine # 3 tab] Clindamycin [Clindamycin CAP] 300 mg PO Q8H #21 cap 03/18/21 Unknown Rx Clindamycin [Clindamycin CAP] 300 mg PO Q6H #28 capsule 09/09/21 Unknown Rx ED Physical Exam - General Limitations: No Limitations General appearance: alert, in no apparent distress - Head Head exam: Present: atraumatic, normocephalic - Eye Eye exam: Present: normal appearance, PERRL - ENT ENT exam: Present: normal exam, mucous membranes moist - Neck Neck exam: Present: normal inspection, full ROM - Respiratory Respiratory exam: Present: normal lung sounds bilaterally. Absent: respiratory distress, wheezes, rales, chest wall tenderness, accessory muscle use, decreased breath sounds - Cardiovascular Cardiovascular Exam: Present: regular rate, normal rhythm. Absent: systolic murmur, diastolic murmur, rubs, gallop - GI/Abdominal GI/Abdominal exam: Present: soft, normal bowel sounds - Extremities Exam Extremities exam: Present: normal inspection, tenderness, normal capillary re fill - Back Exam Back exam: Present: normal inspection - Neurological Exam Neurological exam: Present: alert, oriented X3 - Psychiatric Psychiatric exam: Present: normal affect, normal mood - Skin Skin exam: Present: warm, dry, intact, normal color, erythema (Erythema swelling to the right axilla abscess is noted mild fluctuation present. No lymphangitis is present no lymphadenopathy). Absent: rash ED Course Vital Signs 09/09/21 09/09/21 00:55 01:48 Temperature 98.1 F Pulse Rate 113 H Respiratory 18 14 Rate Blood Pressure 112/75 O2 Sat by Pulse 99 Oximetry - Procedure Description Procedures done: PRE-OP DIAGNOSIS: *Abscess. POST-OP DIAGNOSIS: Same. PROCEDURE: incision and drainage of abscess. Performing Physician/advanced practice provider: Blaire Laguerre_. . PROCEDURE: A timeout protocol was performed prior to initiating the procedure. The area was prepared and draped in the usual, sterile manner. The site was anesthetized with 2% lidocaine without epinephrine. A linear incision was along the local skin lines was made and the purulent material expressed. The abcess was explored thoroughly and se questered pockets were opened. Wound was irrigated with normal saline and bleeding was minimal. Packing: None. . Followup: The patient tolerated the procedure well without complications. Standard post-procedure care is explained and return precautions are given. Critical care attestation.: If time is entered above; I have spent that time in minutes in the direct care of this critically ill patient, excluding procedure time. ED Disposition Clinical Impression: Abscess of axilla, right Disposition: HOME / SELF CARE / HOMELESS Is pt being admited?: No Does the pt Need Aspirin: No Condition: Stable Instructions: Skin Abscess, Incision and Drainage, Care After Prescriptions: Clindamycin [Clindamycin CAP] 300 mg PO Q6H #28 capsule Referrals: [facility] [Provider Group] - 3-5 Days PRIMARY CARE, [Primary Care Provider] - 3-5 Days
[2021-09-09 04:29] VITALS: BP 126/76
== END 2021-09-09 04:28 | disposition home or self-care (01) ==
LOC: ED 00:26
DX: L02.411 Cutaneous abscess of right axilla (principal); Z88.6 Allergy status to analgesic agent; Z88.1 Allergy status to other antibiotic agents; F17.200 Nicotine dependence, unspecified, uncomplicated; I10 Essential (primary) hypertension
CPT/HCPCS: 10060; 96372; 99282; J3490